=== PATIENT | female | born 1995 | race Caucasian/White ===

== ENCOUNTER 2018-07-23 01:30 | Observation (INO) | payer OTHER ==
[~2018-07-23] VITALS: Ht 157.5 cm; Wt 76.7 kg
[2018-07-23] MEDS ORDERED: ONDANSETRON HCL INJ 2 MG/ML VIAL IV STA (01:52)
[2018-07-23] MEDS ORDERED: MORPHINE SULFATE 2 MG/ML SYR IV STA (01:52)
[2018-07-23] MEDS ORDERED: SODIUM CHLORIDE 0.9% 1000ML 1,000 ML IV STA (01:52)
[2018-07-23] MEDS ORDERED: KETOROLAC TROMETHAMINE 30 MG/ML VIAL IV STA (01:52)
[2018-07-23 02:26] LABS: BASOPHILS # (AUTO) 0.1 (0.0-0.1); BASOPHILS % 0.4 % (0.0-1.0); EOSINOPHILS # (AUTO) 0.4 (0.0-0.4); EOSINOPHILS % 2.6 % (0.0-6.0); HEMATOCRIT 41.5 % (34.2-44.1); LYMPHOCYTES # (AUTO) 2.9 (1.0-3.2); LYMPHOCYTES % 20.6 % (18.0-39.1); MEAN CORPUSCULAR HEMOGLOBIN 30.7 pg (28-32); MEAN CORPUSCULAR HGB CONC 33.7 g/dL (31-35); MONOCYTES # (AUTO) 0.9 (0.2-0.8); MONOCYTES % 6.1 % (4.4-11.3); NEUTROPHILS # (AUTO) 9.8 (2.1-6.9); NEUTROPHILS % 69.9 % (38.7-80.0); PLATELET COUNT 280 x10e3/uL (140-360); RED BLOOD COUNT 4.56 x10e6/uL (3.6-5.1); RED CELL DISTRIBUTION WIDTH 11.9 % (11.7-14.4)
[2018-07-23 02:32] LABS: BILIRUBIN,URINE NEGATIVE (NEGATIVE); CLARITY,URINE CLOUDY (CLEAR); COLOR,URINE YELLOW (YELLOW); KETONES,URINE NEGATIVE (NEGATIVE); LEUKOCYTE ESTERASE ,URINE NEGATIVE (NEGATIVE); NITRITE,URINE NEGATIVE (NEGATIVE); PREGNANCY TEST, URINE NEGATIVE (NEGATIVE); PROTEIN,URINE DIPSTICK NEGATIVE (NEGATIVE); URINE UROBILINOGEN 0.2 mg/dL (0.2 - 1)
[2018-07-23 02:38] LABS: ALANINE AMINOTRANSFERASE 34 IU/L (0-55); ALBUMIN 4.2 g/dL (3.5-5.0); ALBUMIN/GLOBULIN RATIO 1.1 (0.8-2.0); ALKALINE PHOSPHATASE 101 IU/L (40-150); ANION GAP 14.9 mmol/L (8-16); BLOOD UREA NITROGEN 11 mg/dL (7-26); BUN/CREATININE RATIO 13 (6-25); CALCIUM 9.6 mg/dL (8.4-10.2); CARBON DIOXIDE 22 mmol/L (22-29); CHLORIDE 104 mmol/L (98-107); CREATININE, SERUM 0.84 mg/dL (0.57-1.11); EST GLOMERULAR FILTRATION RATE > 60 ML/MIN (60-); GLUCOSE 94 mg/dL (74-118); LIPASE 30 U/L (8-78); POTASSIUM 3.9 mmol/L (3.5-5.1); SODIUM 137 mmol/L (136-145)
[2018-07-23 02:49] LABS: BACTERIA,URINE MODERATE /HPF; EPITHELIAL CELLS,URINE FEW /LPF; RBC,URINE >50 /HPF (0-5)
[2018-07-23] MEDS ORDERED: CEFTRIAXONE SOD 1 GM VIAL IV STA (02:52)
--- NOTE | 2018-07-23 03:29 | Diagnostic Imaging Report ---
EXAM: CT Abdomen and Pelvis WITHOUT contrast INDICATION: ^Stone Protocol ^[id number] ^0250 ^Y COMPARISON: None. TECHNIQUE: Abdomen and pelvis were scanned utilizing a multidetector helical scanner from the lung base to the pubic symphysis without administration of IV contrast. Absence of intravenous contrast decreases sensitivity for detection of focal lesions and vascular pathology. Coronal and sagittal reformations were obtained. Routine protocol was performed. IV CONTRAST: None ORAL CONTRAST: Water COMPLICATIONS: None RADIATION DOSE: Total DLP: 426.2 mGy*cm Estimated effective dose: (DLP x 0.015 x size factor) mSv CTDIvol has been reviewed. It is below the limits set by the Radiation Protocol Committee (RPC). Dose modulation, iterative reconstruction, and/or weight based adjustment of the mA/kV was utilized to reduce the radiation dose to as low as reasonably achievable. FINDINGS: LINES and TUBES: None. LOWER THORAX: Unremarkable HEPATOBILIARY: No focal hepatic lesions. No biliary ductal dilation. GALLBLADDER: No radio-opaque stones or sludge. No wall thickening. SPLEEN: No splenomegaly. PANCREAS: No focal masses or ductal dilatation. ADRENALS: No adrenal nodules KIDNEYS/URETERS: Mild right hydronephrosis secondary to a 0.7 x 0.5 x 0.5 cm (SI x AP x TV) calculus in the proximal right ureter. No additional stones in the right ureter. Punctate 0.2 cm nonobstructing stone in the superior right renal pole. No left hydronephrosis. Left inferior pole nonobstructing 0.4 cm stone. No left ureteral stones. No bladder stones. No cystic or solid mass lesions. GI TRACT: No abnormal distention, wall thickening, or evidence of bowel obstruction. Appendix is normal. PELVIC ORGANS/BLADDER: Unremarkable. LYMPH NODES: No lymphadenopathy. VESSELS: Unremarkable. PERITONEUM / RETROPERITONEUM: No free air or fluid. BONES: Unremarkable. SOFT TISSUES: Unremarkable. IMPRESSION: 1. Mild right hydronephrosis secondary to a 0.7 x 0.5 x 0.5 cm calculus in the proximal right ureter. 2. Bilateral additional nonobstructing renal calculi. Signed by: DR. Nadeem Koo MD on 07/23/2018 3:26 AM
--- OUTSIDE RECORDS SUMMARY | 2018-07-23 04:08 | XMS REPORT ---
Author Author [facility] Address Unknown Phone Unavailable Care Team Providers Care Commanding Officer [employer] Name Role Phone Patrick BUTTS Unavailable Unavailable Problems This patient has no known problems. Allergies, Adverse Reactions, Alerts This patient has no known allergies or adverse reactions. Medications This patient has no known medications. Results Test Description Test Time Test Comments Text Results Atomic Results Result Comments CT ABDOMEN/PELVIS WO 2018-07-23 03:17:00 [facility] [address] [place] [address] Patient Name: HUSSEIN RUBIO MR #: [id number] : 1995 Age/Sex: 22/F Req #: [id number] Adm Physician: Ordered by: PARISH BUTTS MD Report #: [id number] Location: ER Room/Bed: Procedure: [id number] CT/CT ABDOMEN/PELVIS WO Exam Date: 07/23/18 Exam Time: 249 REPORT STATUS: Signed EXAM: CT Abdomen and Pelvis WITHOUT contrast INDICATION: Stone Protocol [id number] 0250 Y COMPARISON: None. TECHNIQUE: Abdomen and pelvis were scanned utilizing a multidetector helical scanner from the lung base to the pubic symphysis without administration of IV contrast. Absence of intravenous contrast decreases sensitivity for detection of focal lesions and vascular pathology. Coronal and sagittal reformations were obtained. Routine protocol was performed. IV CONTRAST: None ORAL CONTRAST: Water COMPLICATIONS: None RADIATION DOSE: Total DLP: 426.2 mGy*cm Estimated effect santo dose: (DLP x 0.015 x size factor) mSv CTDIvol has been reviewed. It is below the limits set by the Radiation Protocol Committee (RPC). Dose modulation, iterative reconstruction, and/or weight based adjustment of the mA/kV was utilized to reduce the radiation dose to as low as reasonably achievable. FINDINGS: LINES and TUBES: None. LOWER THORAX: Unremarkable HEPATOBILIARY: No focal hepatic lesions. No biliary ductal dilation. GALLBLADDER: No radio-opaque stones or sludge. No wall thickening. SPLEEN: No splenomegaly. PANCREAS: No focal masses or ductal dilatation. ADRENALS: No adrenal nodules KIDNEYS/URETERS: Mild right hydronephrosis secondary to a 0.7 x 0.5 x 0.5 cm (SI x AP x TV) calculus in the proximal right ureter. No additional stones in the right ureter. Punctate 0.2 cm nonobstructing stone in the superior right renal pole. No left hydronephrosis. Left inferior pole nonobstructing 0.4 cm stone. No left ureteral stones. No bladder stones. No cystic or solid mass lesions. GI TRACT: No abnormal distention, wall thickening, or evidence of bowel obstruction. Appendix is normal. PELVIC ORGANS/BLADDER: Unremarkable. LYMPH NODES: No lymphadenopathy. VESSELS: Unremarkable. PERITONEUM / RETROPERITONEUM: No free air or fluid. BONES: Unremarkable. SOFT TISSUES: Unremarkable. IMPRESSION: 1. Mild right hydronephrosis secondary to a 0.7 x 0.5 x 0.5 cm calculus in the proximal right ureter. 2. Bilateral additional nonobstructing renal calculi. Signed by: DR. Nadeem Koo MD on 07/23/2018 3:26 AM Dictated By: NADEEM KOO MD 5 Transcribed By: HAO on 07/23/18325 COPY TO: PARISH BUTTS MD
[2018-07-23] MEDS: SODIUM CHLORIDE 0.9% 1000ML 1,000 ML IV SCH ×2 (04:14→14:33)
[2018-07-23] MEDS: MORPHINE SULFATE 2 MG/ML SYR IV PRN ×4 (04:40→18:28)
[2018-07-23 04:45] VITALS: BP 116/56
[2018-07-23] MEDS ORDERED: VYVANSE50 MG PO (06:51)
[2018-07-23 08:21] VITALS: BP 95/54
[2018-07-23] MEDS: ONDANSETRON HCL INJ 2 MG/ML VIAL IV PRN ×3 (08:37→18:28)
[2018-07-23 12:18] VITALS: BP 90/52
[2018-07-23] MEDS: CEFTRIAXONE SOD 1 GM VIAL IV SCH (14:33)
--- NOTE | 2018-07-23 16:07 | Consultation ---
DATE OF CONSULTATION: July 23, 2018 UROLOGY CONSULTATION CONSULTATION CALLED BY: Dr. Lopez in the emergency room. CHIEF COMPLAINT AND REASON FOR CONSULTATION: Ureteral stone, kidney stone. HISTORY OF PRESENT ILLNESS: Roseanne Thompson is a 22-year-old female with chronic stone who had last seen Dr. Delmar Crystal. She began experiencing acute onset of sharp, severe right-sided flank pain, 10/10, radiating only in the back. Denied dysuria. Denied hematuria. Denied fevers nor chills. Has had multiple previous urologic procedures including lithotripsies, ureteroscopies, and stents. MEDICATIONS: Please see MAR. ALLERGIES: NKDA. SOCIAL HISTORY: Denied smoking or drinking. FAMILY HISTORY: Denied urologic stones or malignancies. REVIEW OF SYSTEMS: Noncontributory other than problems mentioned above for 12 organ systems. PHYSICAL EXAMINATION GENERAL: Young female in no acute distress. VITAL SIGNS: Currently, she is afebrile with stable vital signs. HEENT: Sclerae anicteric. NECK: Supple. BACK: Without costovertebral angle tenderness bilaterally. ABDOMEN: Soft. It is nontender. It is nondistended. There is no palpable mass. No palpable hernias. No palpable lymphadenopathy. : Normal female external genitalia. EXTREMITIES: Without edema. NEUROMUSCULAR: Moves extremities. PSYCH: Alert. Mood appropriate. SKIN: Intact. Normal color. PERTINENT LABORATORY DATA: CT scan revealing a proximal 5 mm x 7 mm right ureteral calculus, mild right hydronephrosis, a 4 mm left lower pole kidney stone. Hemoglobin 14, hematocrit 41, platelet count 280,000, white blood cell count 14,000. Sodium 137, potassium 3.9, chloride 104, bicarb 22, BUN 11, creatinine 0.8, glucose 94. Urine test negative. Urinalysis with positive epithelial cells, 6 to 10 whites, greater than 50 reds. IMPRESSION 1. Right ureteral calculus. 2. Left renal calculus. 3. Right hydronephrosis. 4. Right renal colic. 5. Microscopic hematuria. 6. Question urinary tract infection. PLAN: aggressive trial of passage with aggressive hydration. Check a KUB. Should the patient fail a trial of passage, will likely need stenting tomorrow. Thank you for allowing us to participate in the care of your patient. We will be happy to follow along with you. Job#: [id number] JORDAN
--- NOTE | 2018-07-23 16:37 | Diagnostic Imaging Report ---
Exam: Abdominal film Clinical History: Ureterolithiasis Comparison: CT abdomen and pelvis 07/23/2018 DISCUSSION: See impression. IMPRESSION: 1. 7 mm radiopaque right ureteral calculus projecting at the level of the right transverse process of L4, unchanged. 2. Stable 4 mm nonobstructing calculus in the inferior pole of the left kidney. 3. Nonobstructive bowel gas pattern. The staff physician below has personally reviewed this exam on the date of dictation. Signed by: Dr. Anthony Branham M.D. on 07/23/2018 4:34 PM
[2018-07-23 17:12] VITALS: BP 107/51
[2018-07-23 20:00] VITALS: BP 99/50
[2018-07-23 20:30] VITALS: BP 99/50
[2018-07-24 00:30] VITALS: BP 99/54
[2018-07-24] MEDS: SODIUM CHLORIDE 0.9% 1000ML 1,000 ML IV SCH ×2 (00:51→10:00)
[2018-07-24] MEDS: CEFTRIAXONE SOD 1 GM VIAL IV SCH (03:24)
[2018-07-24 05:31] LABS: BASOPHILS % 0.4 % (0.0-1.0); EOSINOPHILS # (AUTO) 0.5 (0.0-0.4); EOSINOPHILS % 6.5 % (0.0-6.0); HEMATOCRIT 36.4 % (34.2-44.1); LYMPHOCYTES # (AUTO) 2.6 (1.0-3.2); LYMPHOCYTES % 35.9 % (18.0-39.1); MEAN CORPUSCULAR HEMOGLOBIN 30.4 pg (28-32); MEAN CORPUSCULAR HGB CONC 32.7 g/dL (31-35); MEAN CORPUSCULAR VOLUME 93.1 fL (81-99); MONOCYTES # (AUTO) 0.4 (0.2-0.8); MONOCYTES % 5.9 % (4.4-11.3); NEUTROPHILS # (AUTO) 3.6 (2.1-6.9); PLATELET COUNT 230 x10e3/uL (140-360); RED BLOOD COUNT 3.91 x10e6/uL (3.6-5.1); RED CELL DISTRIBUTION WIDTH 11.9 % (11.7-14.4)
[2018-07-24 05:36] LABS: HEMOGLOBIN 11.9 g/dL (12.0-16.0)
--- NOTE | 2018-07-24 06:32 | Diagnostic Imaging Report ---
Exam: Abdominal film Clinical History: Ureterolithiasis Comparison: CT abdomen and pelvis 07/23/2018, KUB 07/23/2018 DISCUSSION: See impression. IMPRESSION: 1. 7 mm radiopaque right ureteral calculus projecting at the level of the right transverse process of L4, unchanged. 2. Stable 4 mm nonobstructing calculus in the inferior pole of the left kidney. 3. Nonobstructive bowel gas pattern. Signed by: DR. Nadeem Koo MD on 07/24/2018 6:28 AM
[2018-07-24 07:10] LABS: ANION GAP 10.2 mmol/L (8-16); BLOOD UREA NITROGEN 7 mg/dL (7-26); BUN/CREATININE RATIO 11 (6-25); CALCIUM 8.5 mg/dL (8.4-10.2); CARBON DIOXIDE 24 mmol/L (22-29); CHLORIDE 107 mmol/L (98-107); CREATININE, SERUM 0.65 mg/dL (0.57-1.11); EST GLOMERULAR FILTRATION RATE > 60 ML/MIN (60-); GLUCOSE 102 mg/dL (74-118); POTASSIUM 4.2 mmol/L (3.5-5.1); SODIUM 137 mmol/L (136-145)
[2018-07-24 08:00] VITALS: BP 102/57
[2018-07-24 08:05] VITALS: BP 102/57
[2018-07-24] MEDS ORDERED: IOPAMIDOL 610MG/1ML 300 MG/ML VIAL IV ONE (11:14)
[2018-07-24 11:57] VITALS: BP 102/55
[2018-07-24] MEDS ORDERED: MORPHINE SULFATE INJ 4 MG/ML INJ IV PRN (12:30)
[2018-07-24 13:17] VITALS: BP 117/56
--- NOTE | 2018-07-24 15:13 | Operative Report ---
DATE OF PROCEDURE: July 24, 2018 PREOPERATIVE DIAGNOSES 1. Microscopic hematuria. 2. Right-sided hydronephrosis. POSTOPERATIVE DIAGNOSES 1. Microscopic hematuria. 2. Right-sided hydronephrosis. PROCEDURES PERFORMED 1. Cystourethroscopy with left ureteral catheterization and left retrograde pyelogram (entirely separate procedure for the diagnosis of microscopic hematuria). 2. Cystourethroscopy with insertion of a right indwelling ureteral stent (entirely separate procedure for the diagnosis of right-sided hydronephrosis). 3. Supervision of fluoroscopy. 4. Interpretation of retrograde ureteropyelography. ANESTHESIA: General. ESTIMATED BLOOD LOSS: Minimal. COMPLICATIONS: None. INDICATIONS: Mrs. Thompson is a very pleasant 22-year-old female with a history of renal colic. She has failed a trial of passage of multiple stones and now presents for stenting in the right side. She voiced understanding of the options, the alternatives, the risks and the benefits and elected to proceed. PROCEDURE IN DETAIL: After informed consent was obtained, the patient was taken to the operative suite and placed supine on the operating table and underwent general anesthesia by the anesthesia service. She was then placed in the dorsal lithotomy position and sterilely prepped and draped for cystoscopy. A 22.5-Moldovan cystoscope was inserted per urethra, and a normal urethra was noted. Panendoscopy of the bladder revealed no tumors, no stones. Both ureteral orifices were in their normal anatomical location and position. Bilateral retrograde pyelograms were performed, and the left revealed a 2 x 3 mm stone in the lower pole and the right revealed a 5 x 7 mm proximal ureteral calculus with proximal hydronephrosis. With a moderate degree of difficulty, a guide wire was inserted proximal to this. A ureteral stent was deployed 6 x 24 cm with a coil in the renal pelvis and a coil in the bladder. The patient's bladder was drained. She was awakened from anesthesia and transported to the recovery room in excellent condition. SUPERVISION OF FLUOROSCOPY AND INTERPRETATION OF RETROGRADE PYELOGRAPHY: I was present throughout the entire procedure, and I supervised fluoroscopy. There was no radiologist present at any time during this procedure. Attention was turned toward the left and right ureteral orifices, which were catheterized with an 8-Moldovan cone-tipped catheter. In a retrograde fashion, contrast was injected, revealing delicate ureters, delicate bilateral caliceal systems, no evidence of filling defects, no evidence of hydronephrosis on the left, on the right side a 5 x 7 mm proximal ureteral calculus with proximal hydronephrosis. Postoperative views on the right side revealed a stent in adequate position. IMPRESSION 1. Right ureteral calculus 7 x 5 mm. 2. Right hydronephrosis. 3. Right ureteral calculus in adequate position. 4. Left lower pole 3 x 2 mm renal calculus unchanged in position. Job#: [id number] EV cc:CHASTITY NIETO DO
[2018-07-24] MEDS: ONDANSETRON HCL INJ 2 MG/ML VIAL IV PRN (15:24)
[2018-07-24] MEDS ORDERED: BACTRIM DS TAB1 EACH PO (16:06)
[2018-07-24] MEDS ORDERED: TYLENOL WITH C1 EACH PO (16:06)
[2018-07-24 16:42] VITALS: BP 98/55
[2018-07-24] MEDS ORDERED: ONDANSETRON HCL INJ 2 MG/ML VIAL ONE (17:55)
[2018-07-24] MEDS ORDERED: PROPOFOL IV EMULSION 10 MG/ML 20 ML VIAL ONE (17:55)
[2018-07-24] MEDS ORDERED: SEVOFLURANE INHAL SOLN 250 ML PEN BTL ONE (17:55)
[2018-07-24] MEDS ORDERED: LIDOCAINE HCL 2% LOCAL INJ 5 ML SDV VIAL INJ ONE (17:55)
[2018-07-24] MEDS ORDERED: DEXAMETHASONE SOD PHOS INJ 4 MG/ML VIAL ONE (17:55)
[2018-07-24] MEDS ORDERED: FENTANYL CITRATE/PF 100MCG/2 ML INJ ONE (18:16)
[2018-07-24] MEDS ORDERED: MIDAZOLAM HCL 2 MG/2 ML VIAL ONE (18:16)
== END 2018-07-24 17:16 | disposition home or self-care (01) ==
LOC: ER 01:30 → ERHOLD 04:05 → IMCU 04:45
DX: N13.2 Hydronephrosis with renal and ureteral calculous obstruction (principal); R31.29 Other microscopic hematuria; F90.9 Attention-deficit hyperactivity disorder, unspecified type; M41.9 Scoliosis, unspecified; Z82.49 Family history of ischemic heart disease and other diseases of the circulatory system; Z87.442 Personal history of urinary calculi
CPT/HCPCS: 36415 ×2; 52332; 74018 ×2; 74176; 74420; 80048; 80053; 81001; 81025; 83690; 85025 ×2; 87086; 96360; 96361; 99284; C2617; G0378 ×2; J0696 ×2; J1100; J1885; J2001; J2250; J2270 ×3; J2405 ×2; J2704; J7030 ×2; Q9967

== ENCOUNTER → 2018-08-09 | Day surgery (SDC) | payer OTHER ==
[~2018-08-09] MED LIST: BACTRIM DS TAB1 EACH PO; DEXAMETHASONE SOD PHOS INJ 4 MG/ML VIAL ONE; FENTANYL CITRATE/PF 100MCG/2 ML INJ ONE; GENTAMICIN 80MG/NS 100 ML 100 ML IV ONE; IOPAMIDOL 610MG/1ML 300 MG/ML VIAL IV ONE; KETOROLAC TROMETHAMINE 30 MG/ML VIAL ONE; LIDOCAINE HCL 2% LOCAL INJ 5 ML SDV VIAL INJ ONE; METOCLOPRAMIDE HCL 10 MG/2ML VIAL ONE; MIDAZOLAM HCL 2 MG/2 ML VIAL ONE; ONDANSETRON HCL INJ 2 MG/ML VIAL ONE; PROPOFOL IV EMULSION 10 MG/ML 20 ML VIAL ONE; SCOPOLAMINE 1.5 MG PATCH ONE; SEVOFLURANE INHAL SOLN 250 ML PEN BTL ONE; TYLENOL WITH C1 EACH PO; VYVANSE50 MG PO
--- NOTE | 2018-08-09 15:48 | Operative Report ---
DATE OF PROCEDURE: August 09, 2018 PREOPERATIVE DIAGNOSES 1. Indwelling right ureteral stent. 2. Right renal calculus. POSTOPERATIVE DIAGNOSES 1. Indwelling right ureteral stent. 2. Right renal calculus. PROCEDURES 1. Cystoscopic removal of right indwelling stent (entirely separate procedure for the diagnosis of right indwelling ureteral stent). 2. Right-sided flexible ureteroscopy with laser lithotripsy (entirely separate procedure for the right renal calculus). 3. Right-sided ureteroscopy with stone extraction (entirely separate procedure for the explicit purpose of sending the stone for analysis, not required for laser lithotripsy). 4. Supervision of fluoroscopy. 5. Interpretation of retrograde pyelography. ANESTHESIA: General. ESTIMATED BLOOD LOSS: Minimal. COMPLICATIONS: None. INDICATIONS FOR PROCEDURE: Mrs. Thompson is a very pleasant 22-year-old female with a failure of trial of passage of stone. She and I had a long discussion about alternatives, risks and benefits including doing nothing, stent removal, ureteroscopy, percutaneous surgery. She voiced understanding of the options, alternatives, risks, and benefits and elected to proceed. PROCEDURE IN DETAIL: After informed consent was obtained, the patient was preoperatively identified. She was transported to the operative suite and placed supine on the operating table and placed in the dorsal lithotomy position sterilely prepped and draped for cystoscopy. A 22.5-Serbian cystoscope was inserted per urethra. No tumors noted. The stent was seen in the bladder. It was grasped and it was removed. The guidewire was inserted. A 2nd safety wire was introduced. Flexible ureteroscope was advanced to the level of the renal stone. Utilizing 200 micron laser fiber, the stone was obliterated and dusted until only 1-2 mm fragments were left. Some of these were basket extracted and passed off the table as specimens for explicit purpose of stone analysis. The collecting system was mapped with the flexible ureteroscope. There were no other stones seen. The ureteroscope was slowly withdrawn, and no obstructive ureteral stones. The bladder was drained. The patient was awakened from anesthesia and transported to the recovery room in excellent condition. SUPERVISION OF FLUOROSCOPY, INTERPRETATION OF RETROGRADE PYELOGRAPHY: As above. IMPRESSION 1. Interval removal of right ureteral stent. 2. Interval removal of right renal calculus. Job#: [id number] [facility]
[2018-08-09 16:45] VITALS: BP 114/78
== END | disposition home or self-care (01) ==
LOC: OR 13:05
PROVIDERS: ATTEND Urology
DX: N20.0 Calculus of kidney (principal); Z46.6 Encounter for fitting and adjustment of urinary device; N13.39 Other hydronephrosis; N20.1 Calculus of ureter
CPT/HCPCS: 52353; 74420; 81025; 88300; J1100; J1580; J1885; J2001; J2250; J2405; J2704; J2765; Q9967